=== PATIENT | female | born 1950 | race Caucasian/White ===

== ENCOUNTER → 2016-09-18 | Outpatient (CLI) | payer MEDICARE ==
[~2016-09-18] MED LIST: REGADENOSON 0.4 MG/5 ML SYRINGE ONE
== END | disposition home or self-care (01) ==
LOC: CFH 06:40
PROVIDERS: ATTEND General Practice
DX: I49.3 Ventricular premature depolarization (principal); I08.3 Combined rheumatic disorders of mitral, aortic and tricuspid valves; I37.1 Nonrheumatic pulmonary valve insufficiency; I10 Essential (primary) hypertension; I25.2 Old myocardial infarction; Z82.49 Family history of ischemic heart disease and other diseases of the circulatory system
CPT/HCPCS: 78452; 93017; 93225; 93306; A9502; J2785